=== PATIENT | female | born 1960 | race Caucasian/White ===

== ENCOUNTER → 2018-05-21 | Outpatient (CLI) | payer OTHER ==
--- NOTE | 2018-05-21 16:16 | KCIC ---
Limited MRI right elbow without contrast dated 05/21/2018 Indication: Elbow pain . .. Comparison: No comparison is available. Technique: Coronal and axial T1 and T2-weighted imaging performed. No sagittal sequences were acquired. The patient was unable to complete the exam due to claustrophobia and pain. Findings: Images are limited due to motion artifact and poor signal. There is hyperintense T2 signal and thickening of the common extensor tendon at its lateral epicondylar attachment. There is some interstitial partial tearing without full-thickness tear or tendon retraction. The radial collateral ligament and lateral ulnar collateral ligament. Intact. Common flexor tendon is intact. The medial ulnar collateral ligament is intact. Biceps tendon and brachialis tendons are intact. Triceps tendon grossly intact. Bone marrow signal is homogeneous. No marrow edema. No apparent joint effusion or loose body. No apparent cartilage defect. Ulnar nerve and cubital tunnel unremarkable. IMPRESSION: 1. Study is somewhat limited due to patient's pain and inability to complete the study. 2. Mild to moderate lateral epicondylitis with interstitial partial tearing of the common extensor tendon near its lateral epicondylar attachment. 3. Otherwise no evidence of internal derangement. Electronically signed by: Chilango Zamarripa MD (05/21/2018 4:13 PM) [id number]
== END | disposition home or self-care (01) ==
LOC: KCIC MRI 14:42
PROVIDERS: ATTEND Family Medicine
DX: M77.11 Lateral epicondylitis, right elbow (principal)
CPT/HCPCS: 73221